=== PATIENT | female | born 1965 | race Caucasian/White ===

== ENCOUNTER 2017-04-08 09:36 | Emergency (ER) | payer BC ==
--- NOTE | ~2017-04-08 | ER ---
Unit #: [id number] #: [id number] Patient: JAIME CID [id number] [address] [place], [place] [address] [id number] MR#: [id number] NAME: JAIME CID ROOM: Sex: F Age: 51 : 1965 Service Date: 04/08/2017 Attending Physician: Mack Briceño M.D. Primary Care Physician: Malick Hurtado D.O. EMERGENCY DEPT PHYSICIAN NOTE Please see the written T sheet for the full details of the encounter. Ms. Cid is a 51-year-old woman who presents to the emergency department with heavy vaginal bleeding that had been present for the last two weeks. The patient denied any symptoms such as dizziness or lightheadedness and all initial vital signs reviewed were normal. The patient had not had any symptoms similar to this in the past and had not seen a SPOOLING OPERATOR doctor for several years. An exam was performed which showed a moderate amount of blood and clots in the vaginal vault with some minimal active bleeding from the cervix; however, there was no heavy bleeding observed. The patient underwent labs which showed a stable hemoglobin from a previous one checked approximately a year ago. As the patient was still bleeding, SPOOLING OPERATOR was contacted at [facility] to arrange close followup and to see if they desire the patient to be started on Provera. GAS STATION OPERATOR was contacted who agreed that it would be appropriate to follow up the patient in the office as the bleeding was not heavy at that time. All vital signs were stable and hemoglobin was normal. They did advise to start Provera until she was followed up in the clinic. After the decision to discharge was made and paperwork was printed up to that end, the patient apparently went to the bathroom and noticed a large amount of blood in the toilet. This frightened her and her as well. The approached me at the desk in a rather aggressive way, demanded that the patient be admitted. I explained my rationale for why the patient was ordered to be discharged; however, the patient's was irate and would not listen to explanations, demanding that I change the patient's disposition. He was escorted back to the room and nursing personnel tried to reassure the patient and her that she should be safe for discharge; however, they were unable to be convinced and desired followup with SPOOLING OPERATOR in the office today. Nursing staff contacted the SPOOLING OPERATOR clinic downtown and staff said that unfortunately there were no openings today for the patient to be seen today. The clinic contacted the SPOOLING OPERATOR doctor electronic field service engineer that I had spoken with previously relaying the concern of the patient and desire to be seen as soon as possible. The physician contacted me again and explained that they would not be able to get her in to clinic today; however, if the patient desired to be seen immediately today, we could send the patient as an ER to ER transfer. I discussed this with the patient who at this time was much more calm and open to discussion. Given her level of concern and the amount of bleeding that she observed here in the emergency department today, she did desire to be seen emergently by SPOOLING OPERATOR. Thus, arrangements were made to make the patient an ER to ER transfer. Before leaving, the patient was administered an oral dose of Provera here to attempt to chapito the bleeding. Unit #: [id number] #: [id number] Patient: JAIME CID Dictated by... Michael Brown/negro TD: 04/08/2017 15:58 JOB #: [id number] EMERGENCY DEPT PHYSICIAN NOTE Page 1 of 1 X Mack Briceño MD X EMERGENCY DEPARTMENT REPORT
[2017-04-08 09:55] LABS: URINE SOURCE CLEAN CATCH
[2017-04-08 09:58] LABS: URINE APPEARANCE CLOUDY; URINE BILIRUBIN NEG (NEG); URINE BLOOD 4+ (NEG); URINE COLOR RED; URINE GLUCOSE NORM (NORM); URINE KETONE NEG (NEG); URINE LEUKOCYTE ESTERASE 1+ (NEG); URINE NITRATE NEG (NEG); URINE PROTEIN 1+ (NEG); URINE SPECIFIC GRAVITY 1.025 (1.003-1.035); URINE UROBILINOGEN NORM (NORM)
[2017-04-08 10:09] LABS: URBCS1 AUWI INNUM /[HPF] (0-2); URINE SQUAMOUS EPITHELIAL CELL FEW /[HPF]; UWBCS1 AUWI 0-2 (0-5)
[2017-04-08 10:53] LABS: BASOPHIL# 0.1 X10e3 (0-0.3); BASOPHIL% 1.1 % (0-2.5); EOSINOPHIL# 0.3 X10e3 (0-0.7); EOSINOPHIL% 3.5 % (0.0-7.0); HEMATOCRIT 37.4 % (35.0-45.0); HEMOGLOBIN 11.9 gm/dL (12.0-16.0); LYMPHOCYTE# 1.9 X10e3 (1.0-3.5); LYMPHOCYTE% 22.4 % (17.0-45.0); MEAN CELL VOLUME 83.1 FL (83-96); MEAN CORPUSCULAR HEMOGLOBIN 26.4 PG (28-34); MEAN CORPUSCULAR HGB CONC 31.8 g/dL (30-36); MEAN PLATELET VOLUME 8.6 FL (6.5-11.5); MONOCYTE# 0.6 X10e3 (0-1.0); MONOCYTE% 7.2 % (3.0-12.0); NEUTROPHIL# 5.6 X10e3 (1.5-7.1); NEUTROPHIL% 65.8 % (40-75); PLATELET COUNT 333 X10e3 (140-420); RED CELL DISTRIBUTION WIDTH 14.5 % (11.0-15.5); WHITE BLOOD COUNT 8.4 X10e3 (4.0-10.5)
[2017-04-08 10:56] LABS: CULTURE INDICATED? NO
[2017-04-08 10:58] LABS: DIFF IND NO
[2017-04-08 11:22] LABS: CREATININE SERUM 0.8 mg/dL (0.6-1.4); GLOM FILT RATE Estimated 86.6 mL/min (>60); POTASSIUM 4.2 mmol/L (3.5-5.1)
== END 2017-04-08 14:18 | disposition short-term general hospital (02) ==
LOC: CED 09:36
PROVIDERS: Emergency Medicine
DX: N92.1 Excessive and frequent menstruation with irregular cycle (principal); K21.9 Gastro-esophageal reflux disease without esophagitis; Z88.5 Allergy status to narcotic agent
CPT/HCPCS: 36415; 80048; 81003; 84703; 85025; 99285